=== PATIENT | female | born 1960 | race Caucasian/White ===

== ENCOUNTER 2023-01-25 08:12 | Day surgery (SDC) | payer BC, MEDICARE ==
[~2023-01-25 08:12] MED LIST: Midazolam 1 MG/ML 2 ML SDV ONE; Propofol 200 MG/20 ML SDV ONE; fentaNYL 100 MCG/2 ML SDV ONE
[2023-01-25] MEDS: Lactated Ringers 1,000 ML IV SCH (08:44)
[2023-01-25] MEDS ORDERED: Glycopyrrolate 0.2 MG/ML 5 ML MDV IVPUSH ONE (09:15)
[2023-01-25] MEDS: Cyanocobalamin (Vitamin B12) 1,000 MCG/ML SDV IM ONE (09:17)
[2023-01-25] MEDS: Glycopyrrolate 0.2 MG/ML 2 ML SDV IVPUSH ONE (09:28)
[2023-01-25] MEDS: MVI, Adult with Vitamin K 10 ML, Thiamine 200 MG, Zinc/Copper/Manganese/Selenium 1 ML i... IV ONE ×4 (09:28)
== END 2023-01-25 12:13 | disposition home or self-care (01) ==
LOC: JP.SDS 08:12
PROVIDERS: ATTEND Surgery
DX: R10.10 Upper abdominal pain, unspecified (principal); I10 Essential (primary) hypertension; K21.9 Gastro-esophageal reflux disease without esophagitis; E11.9 Type 2 diabetes mellitus without complications; Z98.84 Bariatric surgery status
CPT/HCPCS: 43235; J2250; J2704; J3010; J3411; J3420; J3490; J7120

== ENCOUNTER 2023-01-31 03:49 | Inpatient (IN) | payer BC, MEDICARE ==
[2023-01-31] MEDS ORDERED: fentaNYL 250 MCG/5 ML SDV ONE (09:30)
[2023-01-31] MEDS ORDERED: Glycopyrrolate 0.2 MG/ML 5 ML MDV ONE (09:31)
[2023-01-31] MEDS ORDERED: Succinylcholine 200 MG/10 ML MDV ONE (09:31)
[2023-01-31] MEDS ORDERED: Neostigmine Methylsulfate 1 MG/ML 5 ML Syringe ONE (09:31)
[2023-01-31] MEDS ORDERED: Rocuronium 50 MG/5 ML Vial ONE (09:31)
[2023-01-31] MEDS ORDERED: Dexamethasone 4 MG/ML SDV ONE (09:31)
[2023-01-31] MEDS ORDERED: Propofol 200 MG/20 ML SDV ONE (09:31)
[2023-01-31] MEDS ORDERED: Ondansetron 4 MG/2 ML SDV ONE (09:31)
[2023-01-31] MEDS ORDERED: Lidocaine 1% with EPINEPHrine 1:100,000 50 ML MDV ONE (10:26)
[2023-01-31] MEDS ORDERED: Bupivacaine 0.5% 50 ML MDV ONE (10:26)
[2023-01-31] MEDS ORDERED: Meropenem 500 MG SDV ONE (10:27)
[2023-01-31] MEDS ORDERED: Dextrose 5%-Lactated Ringers 1,000 ML IV SCH ×2 (10:30→16:15)
[2023-01-31] MEDS ORDERED: Celecoxib 200 MG Cap PO ONE (10:30)
[2023-01-31] MEDS ORDERED: Enoxaparin 30 MG/0.3 ML Syringe SUBCUT ONE (10:50)
[2023-01-31] MEDS ORDERED: diphenhydrAMINE 25 MG Cap PO PRN (11:00)
[2023-01-31] MEDS ORDERED: Ondansetron 4 MG/2 ML SDV IVPUSH PRN ×2 (11:00→17:00)
[2023-01-31] MEDS ORDERED: Naloxone 0.4 MG/ML SDV IVPUSH PRN (11:00)
[2023-01-31] MEDS ORDERED: diphenhydrAMINE 50 MG/ML SDV IVPUSH PRN ×2 (11:00→17:00)
[2023-01-31] MEDS ORDERED: cefOXitin 2 GM in Sodium Chloride 0.9% 50 ML IV ONE (11:00)
[2023-01-31] MEDS ORDERED: Ketamine 500 MG/5 ML MDV IV SCH (12:00)
[2023-01-31] MEDS ORDERED: Ropivacaine 38 ML, dexAMETHasone 8 MG, EPINEPHrine 0.4 MG, Sodium Chloride 0.9% 39.6 ML NERVRT SCH ×4 (12:00)
[2023-01-31] MEDS ORDERED: Ketamine 15 MG in Sodium Chloride 0.9% 19.85 ML IV SCH (12:00)
[2023-01-31] MEDS ORDERED: Naloxone 0.4 MG/ML SDV IV PRN (12:00)
[2023-01-31] MEDS ORDERED: fentaNYL 100 MCG/2 ML SDV ONE (13:58)
[2023-01-31] MEDS: HYDROmorphone/Normal Saline 6 MG/30 ML PCA Vial IV PRN (14:03)
[2023-01-31] MEDS ORDERED: Lactated Ringers 1,000 ML ONE (14:26)
[2023-01-31] MEDS ORDERED: Cyclobenzaprine 10 MG Tab PO PRN (16:01)
[2023-01-31] MEDS ORDERED: Acetaminophen 500 MG Tab PO PRN (17:00)
[2023-01-31] MEDS ORDERED: Metoclopramide 10 MG/2 ML SDV IVPUSH PRN (17:00)
[2023-01-31] MEDS ORDERED: Labetalol 20 MG/4 ML Syringe IVPUSH PRN (17:00)
[2023-01-31] MEDS ORDERED: hydrOXYzine HCL 100 MG/2 ML SDV IM PRN (17:00)
[2023-01-31] MEDS: Sodium Ferric Gluconate Cmplex 250 MG in Sodium Chloride 0.9% 100 ML IV SCH (17:46)
[2023-01-31] MEDS: cefOXitin 2 GM in Sodium Chloride 0.9% 50 ML IV SCH ×2 (17:53→23:57)
[2023-01-31] MEDS ORDERED: MVI, Adult with Vitamin K 10 ML, Thiamine 200 MG, Zinc/Copper/Manganese/Selenium 1 ML i... IV SCH ×4 (18:00)
[2023-01-31] MEDS: Heparin Sodium 5,000 Units/ML Vial SUBCUT SCH (18:00)
[2023-01-31] MEDS ORDERED: Pantoprazole 40 MG Vial IVPUSH SCH (18:00)
[2023-01-31] MEDS ORDERED: Scopolamine 1.5 MG Transdermal Patch TOP SCH (18:00)
[2023-01-31] MEDS: Pregabalin 75 MG Cap PO SCH (20:54)
[2023-01-31] MEDS: Topiramate 100 MG Tab PO SCH (20:54)
[2023-01-31] MEDS: Acetaminophen 500 MG Tab PO SCH (20:54)
[2023-01-31] MEDS ORDERED: Lactated Ringers 500 ML IV SCH ×2 (23:00→23:30)
[2023-02-01] MEDS: Heparin Sodium 5,000 Units/ML Vial SUBCUT SCH ×3 (01:59→17:23)
[2023-02-01] MEDS ORDERED: Lactated Ringers 500 ML IV SCH ×2 (03:00→03:15)
[2023-02-01 04:37] LABS: BASOPHILS PERCENT AUTO 0.1 % (0.1-1.3); HEMATOCRIT 39.4 % (34.3-46.0); HEMOGLOBIN 12.5 g/dL (11.2-15.5); IMMATURE GRAN ABSOLUTE AUTO 0.08 K/uL (0.00-0.23); IMMATURE GRAN PERCENT AUTO 0.5 % (0.0-0.7); LYMPHOCYTES ABSOLUTE AUTO 0.91 K/uL (0.8-3.3); LYMPHOCYTES PERCENT AUTO 5.4 % (11.4-47.7); MEAN CORPUSCULAR HEMOGLOBIN 28.5 pg (31.6-35.5); MEAN CORPUSCULAR HGB CONC 31.7 g/dL (31.6-35.5); MONOCYTES ABSOLUTE AUTO 0.75 K/uL (0.20-0.90); MONOCYTES PERCENT AUTO 4.5 % (3.3-12.6); NEUTROPHILS PERCENT AUTO 89.5 % (40.0-78.1); PLATELET COUNT,PLT 306 K/uL (130-375); RED BLOOD CELL COUNT 4.38 M/uL (3.77-5.24); WHITE BLOOD CELL COUNT,WBC 16.9 K/uL (3.2-11.0)
[2023-02-01 04:56] LABS: A/G RATIO 0.8 (1.2-2.2); ALANINE AMINOTRANSFERASE,ALT 25 U/L (12-78); ALBUMIN 2.6 g/dL (3.4-5.0); ALKALINE PHOSPHATASE 108 U/L (46-116); ASPARTATE AMNIOTRANSFERASE,AST 17 U/L (15-37); BILIRUBIN TOTAL 0.4 mg/dL (0.2-1.0); BLOOD UREA NITROGEN,BUN 10 mg/dL (7-18); CALCIUM 8.5 mg/dL (8.5-10.1); CARBON DIOXIDE,CO2 22 mmol/L (21-32); CHLORIDE,CL 108 mmol/L (100-108); CREATININE 0.9 mg/dL (0.6-1.0); EST CRCL DRUG DOSING (CG) 52.93 mL/min; ESTIMATED GFR 72 mL/min (>60); GLUCOSE RANDOM 176 mg/dL (74-106); MAGNESIUM 1.6 mg/dL (1.8-2.4); PHOSPHORUS 3.1 mg/dL (2.5-4.9); POTASSIUM,K 4.3 mmol/L (3.6-5.2); PROTEIN TOTAL,TP 5.9 g/dL (6.4-8.2); SODIUM,NA 138 mmol/L (140-148)
[2023-02-01 04:58] LABS: ANION GAP 12.3 mmol/L (5.0-14.0)
[2023-02-01 04:59] LABS: BASOPHILS ABSOLUTE AUTO 0.01 K/uL (0.00-0.10)
[2023-02-01] MEDS: cefOXitin 2 GM in Sodium Chloride 0.9% 50 ML IV SCH ×3 (05:36→17:14)
[2023-02-01] MEDS: Acetaminophen 500 MG Tab PO SCH ×3 (05:37→21:37)
[2023-02-01] MEDS ORDERED: Ondansetron 4 MG Tab.DIS PO PRN (07:52)
[2023-02-01] MEDS: SCOPOLAMINE PATCH CHECK TOP SCH (08:20)
[2023-02-01] MEDS: Celecoxib 200 MG Cap PO SCH ×2 (08:24→21:37)
[2023-02-01] MEDS: Topiramate 100 MG Tab PO SCH ×2 (08:24→21:37)
[2023-02-01] MEDS: Pregabalin 75 MG Cap PO SCH ×3 (08:24→21:40)
[2023-02-01] MEDS: Magnesium Sulfate/Water 2 GM/50 ML BAG IV SCH ×3 (08:25→20:00)
[2023-02-01] MEDS: Dextrose 5%-Lactated Ringers 1,000 ML IV SCH (11:42)
[2023-02-01] MEDS: HYDROmorphone/Normal Saline 6 MG/30 ML PCA Vial IV PRN (12:18)
[2023-02-01] MEDS: Pantoprazole 40 MG Tab.CR PO SCH (15:46)
[2023-02-01] MEDS: Sodium Ferric Gluconate Cmplex 250 MG in Sodium Chloride 0.9% 100 ML IV SCH (17:15)
[2023-02-01] MEDS ORDERED: MVI, Adult with Vitamin K 10 ML, Thiamine 200 MG, Zinc/Copper/Manganese/Selenium 1 ML i... IV SCH ×4 (18:00)
[2023-02-02] MEDS: cefOXitin 2 GM in Sodium Chloride 0.9% 50 ML IV SCH ×3 (00:01→11:58)
[2023-02-02] MEDS: Magnesium Sulfate/Water 2 GM/50 ML BAG IV SCH ×4 (02:36→20:33)
[2023-02-02] MEDS: Heparin Sodium 5,000 Units/ML Vial SUBCUT SCH ×3 (02:37→17:35)
[2023-02-02] MEDS: Dextrose 5%-Lactated Ringers 1,000 ML IV SCH ×2 (04:42→17:38)
[2023-02-02] MEDS: Acetaminophen 500 MG Tab PO SCH ×3 (05:24→20:35)
[2023-02-02] MEDS: SCOPOLAMINE PATCH CHECK TOP SCH (08:29)
[2023-02-02] MEDS: Bisacodyl 5 MG Tab PO SCH ×2 (08:36→20:33)
[2023-02-02] MEDS: Celecoxib 200 MG Cap PO SCH ×2 (08:36→20:34)
[2023-02-02] MEDS: Docusate Sodium 100 MG Cap PO SCH ×2 (08:36→20:33)
[2023-02-02] MEDS: Topiramate 100 MG Tab PO SCH ×2 (08:37→20:34)
[2023-02-02] MEDS: Pregabalin 75 MG Cap PO SCH ×3 (08:42→20:33)
[2023-02-02] MEDS ORDERED: Cyanocobalamin (Vitamin B12) 1,000 MCG/ML SDV IM ONE (09:00)
[2023-02-02] MEDS: HYDROmorphone 2 MG Tab PO PRN (15:15)
[2023-02-02] MEDS: Pantoprazole 40 MG Tab.CR PO SCH (17:35)
[2023-02-03] MEDS: Heparin Sodium 5,000 Units/ML Vial SUBCUT SCH ×2 (02:10→10:10)
[2023-02-03] MEDS: Acetaminophen 500 MG Tab PO SCH (04:59)
[2023-02-03] MEDS: Topiramate 100 MG Tab PO SCH (08:41)
[2023-02-03] MEDS: Bisacodyl 5 MG Tab PO SCH (08:41)
[2023-02-03] MEDS: Docusate Sodium 100 MG Cap PO SCH (08:41)
[2023-02-03] MEDS: Celecoxib 200 MG Cap PO SCH (08:41)
[2023-02-03] MEDS: Pregabalin 75 MG Cap PO SCH (08:48)
[2023-02-03] MEDS: HYDROmorphone 2 MG Tab PO PRN (10:15)
== END 2023-02-03 10:47 | disposition home or self-care (01) | DRG 221 ==
LOC: JP.SDSSCHI 09:53 → JP.MS 14:15
PROVIDERS: ADMIT Surgery; ATTEND Surgery
PROC: 0DB80ZZ Excision of Small Intestine, Open Approach (ICD-10-PCS; principal; 2023-01-31)
PROC: 0WUF0JZ Supplement Abdominal Wall with Synthetic Substitute, Open Approach (ICD-10-PCS; 2023-01-31)
PROC: 0DS80ZZ Reposition Small Intestine, Open Approach (ICD-10-PCS; 2023-01-31)
DX: K43.0 Incisional hernia with obstruction, without gangrene (principal); K56.2 Volvulus; D68.51 Activated protein C resistance; E66.9 Obesity, unspecified; E11.9 Type 2 diabetes mellitus without complications; I10 Essential (primary) hypertension; G43.909 Migraine, unspecified, not intractable, without status migrainosus; E78.00 Pure hypercholesterolemia, unspecified; Z98.84 Bariatric surgery status; Z86.16 Personal history of COVID-19; Z86.718 Personal history of other venous thrombosis and embolism; Z98.51 Tubal ligation status; Z98.890 Other specified postprocedural states; Z79.899 Other long term (current) drug therapy; Z68.29 Body mass index [BMI] 29.0-29.9, adult
CPT/HCPCS: 36415; 74240; 74240-26; 80053; 83735; 84100; 85025; 88302; 88307; A9270-GY; C9113; J0131; J0171; J0330; J0694; J1100; J1170; J1644; J1650; J2020; J2185; J2405; J2704; J2710; J2795; J2916; J3010; J3410; J3411; J3420; J3475; J3490; J7120; J7121; U0002